=== PATIENT | male | born 1995 | race African-American/Black ===

== ENCOUNTER 2018-05-29 16:25 | Emergency (ER) | payer OTHER ==
[2018-05-29 16:40] VITALS: BMI 26.0
--- NOTE | 2018-05-29 16:41 | PDOC ---
Rapid Medical Evaluation Chief Complaint: Chest Pain Medical Evaluation: 05/29/18 16:37 I have performed a brief in-person evaluation of this patient. The patient presents with a chief complaint of:cp / PAlp on and off x 1 month. seen in [place] and told needed cardiac workup Pertinent physical exam findings: + CP, + SOB- I have ordered the following: EKG - + ischemic changes The patient will proceed to the ED for further evaluation. taken into ER 05/29/18 16:39 Discharge Disposition - Diagnosis Chest pain Qualifiers: Chest pain type: unspecified Qualified Code(s): R07.9 - Chest pain, unspecified - Referrals Referrals: Bethel Lyon MD [Primary Care Provider] - - Patient Instructions - Post Discharge Activity
--- NOTE | 2018-05-29 17:29 | PDOC ---
History of Present Illness - General Chief Complaint: Chest Pain Stated Complaint: CHEST PAIN Time Seen by Provider: 05/29/18 16:54 - History of Present Illness Initial Comments: Larry Stacy is a 23yo man with a PMH of ADHD who was sent to the ED by his PMD for ST elevations noted on his EKG. 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 He started noticing palpitations along with throat tightness while driving in his car about a month ago. He was using a lot of energy drinks at that time and assumed that was why he was having palpitations. He also thought the throat tightness might be an allergic reaction to something in his car, and he started taking benedryl. He had an additional episode of the palpitations one month ago and went to a clinic in [place] [place]. He was told at that point that he had ST elevations but that it was "just ischemia" and started on a daily ASA81 and beta kymberly. He followed up at the clinic one week later, at which point he was told the elevations had improved, and he was told to continue the medications. He declined the BB, though, as he did not want to become "addicted" to it. He was told to avoid caffeine and says he has been doing so, but he does continue to take a prescri bed stimulant for his ADHD. He is back in [place] due to school vacation, and he scheduled an appointment with his PMD for follow up. He had an EKG in the office this afternoon and was sent to the ED after ST elevations and t-wave inversions were noted. Larry states that he has no known cardiac history or family cardiac history. He used to drink large amounts of caffeine, but he has since stopped. He takes a stimulant but no other medications at home. He takes a daily mag supplement and protein supplement but denies any weight loss medications or other enhancers. He has not had any chest pain, shortness of breath, LE edema, or symptoms associated with exertion. He was recently in [place] for one week but denies feeling ill at that time; his symptoms started several weeks before his trip. He denies any other symptoms, recent illness, fever, baseline health problems, or any other abnormalities. Past History - Past Medical History Allergies/Adverse Reactions: Allergies Allergy/AdvReac Type Severity Reaction Status Date / Time No Known Allergies Allergy Verified 05/29/18 16:40 COPD: Yes - Suicide/Smoking/Psychosocial Hx Smoking History: Former smoker Have you smoked in the past 12 months: No Information on smoking cessation initiated: No Hx Alcohol Use: No Drug/Substance Use Hx: No Cardiac Specific PMH - Complaint Specific PMHX Comments:: 05/29/18 19:57 h/o previous ST elevations on EKG last month Review of Systems - Review of Systems Comments:: General: No fevers, no chills, no weight or appetite change, no malaise HEENT: No changes in vision, no changes in hearing, no congestion, no sore throat CV: See HPI Pulm: No SOB, no cough, no wheezing GI: No nausea or vomiting, no change in bowel habits, no melena : No frequency, no urgency, no dysuria Musc: No back pain, no joint swelling, no recent injury Skin: No rash, no lesions, no erythema Endo: No excessive thirst, no heat/cold intolerance Heme: No unusual bruising or bleeding, no swollen glands Neuro: No syncope, no numbness/tingling, no focal weakness Vasc: No claudication Psych: No recent change in mood, no SI or HI *Physical Exam - Vital Signs Last Vital Signs Temp Pulse Resp BP Pulse Ox 98.4 F 76 16 125/73 98 05/29/18 18:30 05/29/18 18:30 05/29/18 18:30 05/29/18 18:30 05/29/18 18:30 - Physical Exam Comments: General: Comfortable, no acute distress HEENT: PERRL, EOMI, MMM, voice normal, normal neck ROM, no LAD Cards: RRR, no murmur appreciated Pulm: Comfortable on room air, clear to auscultation bilaterally Abd: Soft, nontender, nondistended Ext: Atraumatic. No LE edema. ROM intact. Strength 5/5 and equal bilaterally Vasc: Extremities WWP. Palpable radial and pedal pulses bilaterally Skin: Normal color, no rashes or lesions Neuro: A&Ox3, CN grossly intact, normal speech, motor/sensory grossly intact and symmetric Psych: Mood appropriate to situation Moderate Sedation - Procedure Monitoring Vital Signs: Procedure Monitoring Vital Signs Temperature 98.4 F 05/29/18 18:30 Pulse Rate 76 05/29/18 18:30 Respiratory Rate 16 05/29/18 18:30 Blood Pressure 125/73 05/29/18 18:30 O2 Sat by Pulse Oximetry (%) 98 05/29/18 18:30 ED Treatment Course - LABORATORY CBC & Chemistry Diagram: 05/29/18 18:00 05/29/18 18:00 - ADDITIONAL ORDERS Additional order review: Laboratory Results 05/29/18 18:00 Sodium 137 Potassium 4.0 Chloride 104 Carbon Dioxide 27 Anion Gap 7 L BUN 24 H Creatinine 1.1 Creat Clearance w eGFR > 60 Random Glucose 82 Calcium 8.9 Phosphorus 3.0 Magnesium 2.3 Total Bilirubin 0.5 AST 35 ALT 59 Alkaline Phosphatase 103 Creatine Kinase 911 H Troponin I < 0.02 Total Protein 7.6 Albumin 4.1 05/29/18 18:00 RBC 4.76 MCV 90.7 MCHC 34.6 RDW 13.5 MPV 7.4 L Neutrophils % 72.4 Lymphocytes % 19.9 Monocytes % 6.3 Eosinophils % 0.6 Basophils % 0.8 - RADIOLOGY Radiology Studies Ordered: Category Date Time Status CHEST PA & LAT [RAD] Stat Radiology 05/29/18 17:13 Ordered Medical Decision Making - Medical Decision Making 05/29/18 17:27 Larry Stacy is a 23yo man with a PMH of ADHD and previously seen ST elevations (1 mo ago) who presents from his PMD with EKG changes suggestive of ischemia. - EKG compelted - ST elevations in I, aVL, V1-V5. ST depressions in III, ?aVF. T -wave inversions in III, aVF, V4, V5 - CBC, CMP, mag, phos, trop, CXR ordered for evaluation 05/29/18 18:15 - Labs pending. No symptoms currently 05/29/18 18:54 - Labs reviewed. Notable for negative trop. CK 911. - Chest xray to be completed - Will need admission for additional cardiac workup following completion of xray. 05/29/18 19:53 - Signed out to Dr Rachel for remainder of ED care Discussed with Dr Montejo. Lavern Parra PGY1 *DC/Admit/Observation/Transfer Diagnosis at time of Disposition: Chest pain Qualifiers: Chest pain type: unspecified Qualified Code(s): R07.9 - Chest pain, unspecified - Referrals Referrals: Bethel Lyon MD [Primary Care Provider] - - Patient Instructions - Post Discharge Activity
[2018-05-29 18:24] LABS: BASO % 0.8 % (0-2.0); EOS % 0.6 % (0-4.5); HEMATOCRIT 43.2 % (35.4-49); LYMPH % 19.9 % (8-40); MCH 31.4 pg (25.7-33.7); MCHC 34.6 g/dl (32.0-35.9); MEAN CELL VOLUME 90.7 fl (80-96); MEAN PLT VOLUME 7.4 fl (7.5-11.1); MONO % 6.3 % (3.8-10.2); NEUT % 72.4 % (42.8-82.8); PLATELET COUNT 233 K/MM3 (134-434); RBC 4.76 M/mm3 (4.00-5.60); RDW 13.5 % (11.9-15.9); WHITE BLOOD COUNT 6.1 K/mm3 (4.0-10.0)
[2018-05-29 18:44] LABS: ALBUMIN 4.1 g/dl (3.4-5.0); ALK PHOS 103 U/L (45-117); ANION GAP 7 MMOL/L (8-16); BILIRUBIN,TOTAL 0.5 mg/dL (0.2-1); BLOOD UREA NITROGEN 24 mg/dL (7-18); CALCIUM 8.9 mg/dL (8.5-10.1); CHLORIDE 104 mmol/L (98-107); CO2 27 mmol/L (21-32); CREATININE 1.1 mg/dL (0.55-1.3); GLUCOSE,RANDOM 82 mg/dL (74-106); MAGNESIUM 2.3 mg/dL (1.8-2.4); SGOT/AST 35 U/L (15-37); SGPT/ALT 59 U/L (13-61); SODIUM 137 mmol/L (136-145); TOT PROT 7.6 g/dl (6.4-8.2)
[2018-05-29 18:54] VITALS: BP 125/73
--- NOTE | 2018-05-29 19:32 | PDOC ---
Attending Attestation - HPI HPI: This patient is a 23 year old male, with PMHx of ADHD, who presents with chest pain and palpitations for 1 month. Patient states that that he was in his car when the palpitations began. Patient states that he has experienced something similar in the past approximately 1 month ago. He also notes that it felt like his throat was closing so he took some Benadryl. Patient notes recent travel to [place] for 1 week within the past month. 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 He notes that he takes Magnesium supplement daily as recommended by a close friend. Social Hx: No tobacco, illicit drug use, social EtOh (4-5 beers/day) Surgical Hx: none Family Hx: no cardiac history PCP: Bethel Lyon 05/29/18 19:46 <Jodi Fay - Last Filed: 05/29/18 19:46> - Resident Resident Name: Lavern Parra - ED Attending Attestation I have performed the following: I have examined & evaluated the patient, The case was reviewed & discussed with the resident, I agree w/resident's findings & plan, Exceptions are as noted - HPI HPI: 05/29/18 19:31 23 yo male has had some palpitations and throat tightness and went to his PCP, Dr Lyon and had an ekg which was abnormal and he was referred to the ED - Physicial Exam PE: 05/29/18 19:33 slender ,alert 23 yo male in no acute distress with stable vital signs head ncat neck supple,no bruits lungs cta b/l cvs [id number] abd no rebound,no guarding ext no edema no cva tenderness 'skin warm and dry neuro axox3,ambulatory psych appropriate - Medical Decision Making 05/29/18 19:34 EKG sinus rhythm at 79 bpm, with criteria for left ventricular hypertrophy, T- wave abnormality inverted T's in III, aVf, and ST elevation V1- V5 05/29/18 20:25 cpk 911 and first troponin is negative 05/29/18 22:25 [id number] troponin is negative Discussed case with cardiology and a copy of ekg sent to Dr Deluna who felt it was just early repol I spoke with Jordana and he will see the patient to arrange for outpt echo <Carrie Montejo - Last Filed: 05/29/18 22:28>
--- NOTE | 2018-05-29 19:42 | PDOC ---
*Physical Exam - Vital Signs Last Vital Signs Temp Pulse Resp BP Pulse Ox 98.4 F 76 16 125/73 98 05/29/18 18:30 05/29/18 18:30 05/29/18 18:30 05/29/18 18:30 05/29/18 18:30 - Physical Exam General Appearance: No: Apparent Distress HEENT: positive: Normal Voice Respiratory/Chest: positive: Normal Breath Sounds. negative: Respiratory Distress Cardiovascular: positive: Regular Rhythm, Regular Rate ED Treatment Course - LABORATORY CBC & Chemistry Diagram: 05/29/18 18:00 05/29/18 18:00 - ADDITIONAL ORDERS Additional order review: Laboratory Results 05/29/18 18:00 Sodium 137 Potassium 4.0 Chloride 104 Carbon Dioxide 27 Anion Gap 7 L BUN 24 H Creatinine 1.1 Creat Clearance w eGFR > 60 Random Glucose 82 Calcium 8.9 Phosphorus 3.0 Magnesium 2.3 Total Bilirubin 0.5 AST 35 ALT 59 Alkaline Phosphatase 103 Creatine Kinase 911 H Creatine Kinase Index 0.2 CK-MB (CK-2) 2.0 Troponin I < 0.02 Total Protein 7.6 Albumin 4.1 05/29/18 18:00 RBC 4.76 MCV 90.7 MCHC 34.6 RDW 13.5 MPV 7.4 L Neutrophils % 72.4 Lymphocytes % 19.9 Monocytes % 6.3 Eosinophils % 0.6 Basophils % 0.8 Medical Decision Making - Medical Decision Making 05/29/18 19:36 Received sign out from resident Dr. Parra. 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 Masters's office for abnormal EKG findings with history of chest pain and palpitations one month ago. H/o ADHD on Methylphenidate. CK elevated to 900. Initial troponin negative. Awaiting CXR. CXR unremarkable for acute cardiopulmonary process. 05/29/18 21:05 Page sent to net developer architect material preparation worker. Awaiting call back. Telephone consult with Dr. Deluna, who remotely reviewed pt's EKG. Believes findings are likely benign early repolarization. Recommended pt be followed outpatient. ED Attending discussed ED course with pt's PCP, who will re-evaluate pt in clinic. Discussed imaging and laboratory results with pt. Answered all questions. Provided return precautions. Pt expressed verbal understanding and agreement with plan to discharge home with outpatient follow up. *DC/Admit/Observation/Transfer Diagnosis at time of Disposition: Nonspecific abnormal electrocardiogram (ECG) (EKG) Chest pain Qualifiers: Chest pain type: unspecified Qualified Code(s): R07.9 - Chest pain, unspecified - Discharge Dispostion Disposition: HOME Condition at time of disposition: Good Decision to Admit order: No - Referrals Referrals: Bethel Lyon MD [Primary Care Provider] - - Patient Instructions Printed Discharge Instructions: DI for Palpitations Additional Instructions: You were seen today for EKG abnormalities in the setting of recent episodes of palpitations. Your blood work was normal today. Your chest xray was normal today. Your EKG was evaluated by a net developer architect and felt to be signs of early repolarization, which is normal in young, healthy males. Follow up with your primary care doctor, Dr. Lyon, tomorrow. He was called and informed of your ED course. You will need to call to make an appointment. The number is included in this packet. A copy of your results are included in this packet. Please take it with you to your appointment so your doctor can review it. Go to the nearest emergency department if your condition worsens or you feel like you need additional emergency evaluation. Print Language: KUWAITI - Post Discharge Activity
[2018-05-29 20:16] VITALS: PULSE 74; TEMP 98.3
--- NOTE | 2018-05-30 18:15 | EKG ---
Test Reason : Blood Pressure : / mmHG Vent. Rate : 081 BPM Atrial Rate : 081 BPM P-R Int : 164 ms QRS Dur : 100 ms QT Int : 368 ms P-R-T Axes : 032 070 -11 degrees QTc Int : 427 ms NORMAL SINUS RHYTHM VOLTAGE CRITERIA FOR LEFT VENTRICULAR HYPERTROPHY ST ELEVATION, CONSIDER EARLY REPOLARIZATION, PERICARDITIS, OR INJURY T WAVE ABNORMALITY, CONSIDER INFEROLATERAL ISCHEMIA ABNORMAL ECG NO PREVIOUS ECGS AVAILABLE Confirmed by MD XIOMARA, TEJAL ([id number]) on 05/30/2018 6:14:58 PM Referred By: Confirmed By:TEJAL SOLANO MD
== END 2018-05-29 23:17 | disposition home or self-care (01) ==
LOC: JER 16:25
DX: R07.9 Chest pain, unspecified (principal); R94.31 Abnormal electrocardiogram [ECG] [EKG]; F90.9 Attention-deficit hyperactivity disorder, unspecified type
CPT/HCPCS: 36415; 71046-TC-FY; 80053; 82550; 82553; 83735; 84100; 84484; 85025; 93005; 93010; 99283-25

== ENCOUNTER 2021-11-02 01:43 | Emergency (ER) | payer OTHER ==
[2021-11-02 02:09] VITALS: TEMP 98.4; BMI 30.1
[2021-11-02] MEDS ORDERED: ACETAMINOPHEN 325 MG TABLET (FP) PO ONE (02:52)
[2021-11-02 03:30] VITALS: BP 124/71; PULSE 68
[2021-11-02] MEDS ORDERED: ACETAMINOPHEN 325 MG TABLET (FP) ONE (03:30)
== END 2021-11-02 03:41 | disposition home or self-care (01) ==
LOC: JER 01:43
DX: S13.4XXA Sprain of ligaments of cervical spine, initial encounter (principal); V49.40XA Driver injured in collision with unspecified motor vehicles in traffic accident, initial encounter
CPT/HCPCS: 99283-25